=== PATIENT | female | born 1960 | race Caucasian/White ===

== ENCOUNTER 2023-03-14 22:22 | Emergency (ER) | payer OTHER ==
[~2023-03-14] VITALS: Ht 167.6 cm; Wt 65.9 kg
[2023-03-14] MEDS ORDERED: ALBUTEROL SULFATE HFA 90 MCG/PUFF 8 GM INHALER IH ONE (22:45)
[2023-03-14 23:03] VITALS: BP 127/70; PULSE 82; RESP 18; TEMP 98.3
== END 2023-03-14 23:03 | disposition home or self-care (01) ==
LOC: EMS 22:25
DX: R07.0 Pain in throat (principal); J45.909 Unspecified asthma, uncomplicated
CPT/HCPCS: 99283; 94640; J3535